=== PATIENT | female | born 1940 | race Caucasian/White ===

== ENCOUNTER 2018-12-05 11:02 | Day surgery (SDC) | payer MEDICARE ==
[2018-12-05] MEDS ORDERED: Midazolam 1 MG/ML 2 ML SDV ONE (11:29)
[2018-12-05] MEDS ORDERED: fentaNYL 100 MCG/2 ML SDV ONE (11:29)
[2018-12-05] MEDS ORDERED: Propofol 200 MG/20 ML SDV ONE (11:29)
[2018-12-05] MEDS: Dextrose 5%-Lactated Ringers 1,000 ML IV SCH (11:49)
[2018-12-05] MEDS: Albuterol/Ipratropium 3.0-0.5 MG/3 ML Neb Soln NEB ONE (11:56)
[2018-12-05 14:02] VITALS: BP 140/74; PULSE 73
--- NOTE | 2018-12-06 15:11 | OR ---
DATE OF PROCEDURE: 12/05/2018 SURGEON: Jose D Marinelli MD PREOPERATIVE DIAGNOSIS: Indications for screening colonoscopy. POSTOPERATIVE DIAGNOSIS: Single small polyp in descending colon. OPERATIVE PROCEDURE: Flexible colonoscopy with polypectomy by snare technique ([id number]). ANESTHESIA: IV sedation. INDICATION FOR PROCEDURE: The patient presents for screening colonoscopy. The plan is to proceed with a colonoscopy with biopsies and/or polypectomy as indicated. Potential risks of the procedure including bleeding and perforation were discussed, and the patient wishes to proceed. DETAILS OF PROCEDURE: The patient was taken to the operating room and placed in a left lateral decubitus position. IV sedation was administered, after which the initial digital rectal exam was performed, which was unremarkable. The colonoscope was then passed to the level of the rectum with retroflexion revealing uncomplicated hemorrhoidal columns. The scope was eventually passed to the level of the cecum. The prep was good with only a small amount of liquid stool present. There was no diverticula or areas of colitis identified. The patient did have 1 single small polyp measuring around 2 to 3 mm. This was encircled with the snare and excised. It did come through the scope in a piecemeal manner with multiple small fragments being sent for histology. The polyp was located 40 cm from the dentate line, i.e. would be in the area of the ascending colon. Good hemostasis was noted at the polypectomy site, and the remainder of the exam was then completed and found to be otherwise unremarkable. The patient was taken to the recovery room in satisfactory condition. At 77, if the patient is in otherwise good health, one should consider repeating the colonoscopy in 2 to 3 years to be sure there is not any local recurrence at the polypectomy site. Jose D Marinelli MD /[id number]
== END 2018-12-05 14:05 | disposition home or self-care (01) ==
LOC: JP.SDS 11:02
PROVIDERS: ATTEND Surgery
DX: Z12.11 Encounter for screening for malignant neoplasm of colon (principal); D12.4 Benign neoplasm of descending colon; I12.9 Hypertensive chronic kidney disease with stage 1 through stage 4 chronic kidney disease, or unspecified chronic kidney disease; E11.22 Type 2 diabetes mellitus with diabetic chronic kidney disease; N18.3 Chronic kidney disease, stage 3 (moderate); Z87.891 Personal history of nicotine dependence
CPT/HCPCS: 45385; 88305; 94640; J2250; J2704; J3010; J7042; J7620-GY

== ENCOUNTER 2024-01-10 07:41 | Inpatient (IN) | payer MEDICARE ==
[2024-01-10] MEDS: Acetaminophen 325 MG Tab PO ONE (08:25)
[2024-01-10] MEDS: Bacitracin Oint 1 GM U/D Packet TOP ONE (12:28)
[2024-01-10] MEDS ORDERED: Polyethylene Glycol 3350 Powder 17 GM Packet PO PRN (14:54)
[2024-01-10] MEDS ORDERED: Ondansetron 4 MG/2 ML SDV IV PRN (14:54)
[2024-01-10] MEDS ORDERED: HYDROCHLOROTHIAZIDE PO SCH (14:54)
[2024-01-10] MEDS ORDERED: Albuterol/Ipratropium 3.0-0.5 MG/3 ML Neb Soln NEB PRN (14:54)
[2024-01-10] MEDS ORDERED: Albuterol 6.7 GM Inhaler INH PRN (14:54)
[2024-01-10] MEDS ORDERED: ENALAPRIL PO SCH (14:54)
[2024-01-10] MEDS ORDERED: [UNRECOGNIZED DRUG - OTHER] PO SCH (14:54)
[2024-01-10] MEDS ORDERED: Sodium Chloride 0.9% 10 ML Syringe FLUSH PRN (14:54)
[2024-01-10 15:12] LABS: HEMATOCRIT 35.8 % (34.3-46.0); HEMOGLOBIN 12.1 g/dL (11.2-15.5); MEAN CORPUSCULAR HEMOGLOBIN 32.4 pg (31.6-35.5); MEAN CORPUSCULAR HGB CONC 33.8 g/dL (31.6-35.5); RED BLOOD CELL COUNT 3.73 M/uL (3.77-5.24); WHITE BLOOD CELL COUNT,WBC 7.4 K/uL (3.2-11.0)
[2024-01-10 15:32] LABS: CALCIUM 9.9 mg/dL (8.5-10.1); EST CRCL DRUG DOSING (CG) 44.51 mL/min; MAGNESIUM 1.2 mg/dL (1.8-2.4); POTASSIUM,K 4.2 mmol/L (3.6-5.2)
[2024-01-10 15:35] LABS: ANION GAP 13.2 mmol/L (5.0-14.0)
[2024-01-10] MEDS: Magnesium Sulfate/Water Premix 2 GM in Premix Bag 1 BAG IV SCH (16:13)
[2024-01-10] MEDS: Enoxaparin 40 MG/0.4 ML Syringe SUBCUT SCH (16:13)
[2024-01-10] MEDS: Enalapril 5 MG Tab PO SCH ×2 (16:13→18:04)
[2024-01-10] MEDS: metFORMIN 500 MG Tab PO SCH (17:01)
[2024-01-10] MEDS ORDERED: Glucose Gel 15 GM in 37.5 GM Tube PO PRN (17:45)
[2024-01-10] MEDS ORDERED: 50% Dextrose in Water 50 ML Syringe IV PRN (17:45)
[2024-01-10] MEDS: Metoprolol Tartrate 25 MG Tab PO SCH (18:18)
[2024-01-10] MEDS: Acetaminophen 325 MG Tab PO PRN (19:40)
[2024-01-10] MEDS: atorvaSTATin 10 MG Tab PO SCH (19:49)
[2024-01-10] MEDS: Magnesium Oxide 400 MG Tab PO SCH (19:49)
[2024-01-10] MEDS: PIOGLITAZONE 45 MG PO SCH (20:08)
[2024-01-10] MEDS: Insulin Lispro 100 Unit/ML 3 ML KwikPen SUBCUT SCH (21:01)
[2024-01-10] MEDS: Acetaminophen/HYDROcodone 325-5 MG Tab PO PRN (23:02)
[2024-01-11 06:09] LABS: CALCIUM 8.9 mg/dL (8.5-10.1); EST CRCL DRUG DOSING (CG) 44.51 mL/min; MAGNESIUM 1.8 mg/dL (1.8-2.4); POTASSIUM,K 4.4 mmol/L (3.6-5.2)
[2024-01-11 06:11] LABS: ANION GAP 11.4 mmol/L (5.0-14.0)
[2024-01-11] MEDS ORDERED: Metoprolol Tartrate 25 MG Tab PO SCH (09:00)
[2024-01-11] MEDS ORDERED: Metoprolol Succinate 25 MG Tab.ER PO SCH (09:00)
[2024-01-11] MEDS: Aspirin 81 MG Tab.EC PO SCH (09:14)
[2024-01-11] MEDS: FLU (Fluad Triv) TS24-25 (65UP)/MF59C/PF 45 MCG/0.5 ML Syringe IM ONE (21:32)
[2024-01-12] MEDS: Docusate Sodium 100 MG Cap PO PRN (12:15)
[2024-01-13 11:27] VITALS: BP 158/49; PULSE 73
== END 2024-01-13 12:00 | DRG 563 ==
LOC: JP.ED 07:41 → JP.2SS 12:52 → JP.MS 01-11 10:09
PROVIDERS: ADMIT Hospitalist; ATTEND Hospitalist
DX: S62.645A Nondisplaced fracture of proximal phalanx of left ring finger, initial encounter for closed fracture (principal); S52.592A Other fractures of lower end of left radius, initial encounter for closed fracture; S82.001A Unspecified fracture of right patella, initial encounter for closed fracture; S82.101A Unspecified fracture of upper end of right tibia, initial encounter for closed fracture; I10 Essential (primary) hypertension; E78.00 Pure hypercholesterolemia, unspecified; S92.212A Displaced fracture of cuboid bone of left foot, initial encounter for closed fracture; E11.9 Type 2 diabetes mellitus without complications; N18.31 Chronic kidney disease, stage 3a; E11.22 Type 2 diabetes mellitus with diabetic chronic kidney disease; Z79.4 Long term (current) use of insulin; Z88.5 Allergy status to narcotic agent; H91.90 Unspecified hearing loss, unspecified ear; H54.7 Unspecified visual loss; M19.90 Unspecified osteoarthritis, unspecified site; K21.9 Gastro-esophageal reflux disease without esophagitis; E83.42 Hypomagnesemia; I12.9 Hypertensive chronic kidney disease with stage 1 through stage 4 chronic kidney disease, or unspecified chronic kidney disease; W19.XXXA Unspecified fall, initial encounter; Z88.8 Allergy status to other drugs, medicaments and biological substances; Z79.899 Other long term (current) drug therapy; Z79.82 Long term (current) use of aspirin; Z79.51 Long term (current) use of inhaled steroids; Z79.84 Long term (current) use of oral hypoglycemic drugs; Z98.49 Cataract extraction status, unspecified eye; Z90.89 Acquired absence of other organs; Z86.0100 Personal history of colon polyps, unspecified; Z98.890 Other specified postprocedural states; Z90.710 Acquired absence of both cervix and uterus; Z90.49 Acquired absence of other specified parts of digestive tract; Z87.891 Personal history of nicotine dependence; Z85.528 Personal history of other malignant neoplasm of kidney
CPT/HCPCS: 36415; 73070-26-LT; 73070-LT; 73110-26-LT; 73110-LT; 73140-26-F4; 73140-F4; 73560-26-RT; 73560-RT; 73590-26-LT; 73590-LT; 73610-26-LT; 73610-LT; 73700-26-LT; 73700-26-RT; 73700-LT; 73700-RT; 76377; 80048; 82947; 83735; 85027; 90653; 97110-GO; 97110-GP; 97162-GP; 97165-GO; 97530-GO; 99222; 99232; 99238; 99284; 99285; A9270-GY; G0008; J1650; J1815; J3475

== ENCOUNTER 2024-03-26 14:21 | Inpatient (IN) | payer MEDICARE ==
[2024-03-26 15:49] LABS: BASOPHILS ABSOLUTE AUTO 0.03 K/uL (0.00-0.10); BASOPHILS PERCENT AUTO 0.3 % (0.1-1.3); EOSINOPHILS ABSOLUTE AUTO 0.15 K/uL (0.00-0.40); EOSINOPHILS PERCENT AUTO 1.7 % (0.0-5.4); HEMATOCRIT 35.1 % (34.3-46.0); IMMATURE GRAN ABSOLUTE AUTO 0.23 K/uL (0.00-0.23); IMMATURE GRAN PERCENT AUTO 2.6 % (0.0-0.7); LYMPHOCYTES ABSOLUTE AUTO 1.24 K/uL (0.8-3.3); LYMPHOCYTES PERCENT AUTO 13.9 % (11.4-47.7); MEAN CORPUSCULAR HEMOGLOBIN 31.8 pg (31.6-35.5); MEAN CORPUSCULAR HGB CONC 34.2 g/dL (31.6-35.5); MEAN CORPUSCULAR VOLUME 93.1 fL (81.4-99.0); MONOCYTES ABSOLUTE AUTO 0.85 K/uL (0.20-0.90); MONOCYTES PERCENT AUTO 9.5 % (3.3-12.6); NEUTROPHILS ABSOLUTE AUTO 6.41 K/uL (1.0-7.6); PLATELET COUNT,PLT 331 K/uL (130-375); RED BLOOD CELL COUNT 3.77 M/uL (3.77-5.24); WHITE BLOOD CELL COUNT,WBC 8.9 K/uL (3.2-11.0)
[2024-03-26 16:09] LABS: A/G RATIO 0.7 (1.2-2.2); ALANINE AMINOTRANSFERASE,ALT 25 U/L (12-78); ALBUMIN 2.9 g/dL (3.4-5.0); ALKALINE PHOSPHATASE 80 U/L (46-116); ANION GAP 12.1 mmol/L (5.0-14.0); ASPARTATE AMNIOTRANSFERASE,AST 23 U/L (15-37); BILIRUBIN TOTAL 0.7 mg/dL (0.2-1.0); BLOOD UREA NITROGEN,BUN 16 mg/dL (7-18); CALCIUM 9.1 mg/dL (8.5-10.1); CARBON DIOXIDE,CO2 28 mmol/L (21-32); CHLORIDE,CL 99 mmol/L (100-108); EST CRCL DRUG DOSING (CG) 43.71 mL/min; ESTIMATED GFR 57 mL/min (>60); GLUCOSE RANDOM 217 mg/dL (74-106); POTASSIUM,K 3.1 mmol/L (3.6-5.2); PROTEIN TOTAL,TP 7.3 g/dL (6.4-8.2); SODIUM,NA 136 mmol/L (140-148)
[2024-03-26] MEDS: Iopamidol 612 MG/ML 100 ML Bottle IV SCH (16:25)
[2024-03-26] MEDS: Sodium Chloride 0.9% 80 ML IV SCH (16:25)
[2024-03-26] MEDS: Ondansetron 4 MG/2 ML SDV IVPUSH ONE (16:34)
[2024-03-26] MEDS: Sodium Chloride 0.9% 1,000 ML IV SCH ×2 (16:35→20:14)
[2024-03-26] MEDS: Acetaminophen 325 MG Tab PO ONE (16:37)
[2024-03-26] MEDS: Benzocaine/Cetylpyridinium/Menthol Lozenge MUCMEM PRN (18:19)
[2024-03-26] MEDS: Lidocaine 4% Top Soln 50 ML Bottle MUCMEM ONE (18:42)
[2024-03-26] MEDS ORDERED: Melatonin 3 MG Tab PO PRN (22:26)
[2024-03-26] MEDS ORDERED: Naloxone 0.4 MG/ML SDV IVPUSH PRN (22:26)
[2024-03-26] MEDS: LORazepam 2 MG/ML SDV IVPUSH PRN (23:06)
[2024-03-26] MEDS: Potassium Chloride 10 MEQ in Premix Bag 1 BAG IV SCH (23:09)
[2024-03-26] MEDS: Magnesium Sulf/Wat 2 GM/50 mL 2 GM in Premix Bag 1 BAG IV SCH (23:18)
[2024-03-27 06:03] LABS: HEMOGLOBIN 10.7 g/dL (11.2-15.5); MEAN CORPUSCULAR HEMOGLOBIN 31.6 pg (31.6-35.5); MEAN CORPUSCULAR HGB CONC 33.4 g/dL (31.6-35.5); MEAN CORPUSCULAR VOLUME 94.4 fL (81.4-99.0); RED BLOOD CELL COUNT 3.39 M/uL (3.77-5.24); WHITE BLOOD CELL COUNT,WBC 7.9 K/uL (3.2-11.0)
[2024-03-27 06:24] LABS: CALCIUM 8.2 mg/dL (8.5-10.1); CREATININE 0.8 mg/dL (0.6-1.0); EST CRCL DRUG DOSING (CG) 54.63 mL/min; POTASSIUM,K 3.2 mmol/L (3.6-5.2)
[2024-03-27 06:26] LABS: ANION GAP 13.2 mmol/L (5.0-14.0)
[2024-03-27] MEDS: Sodium Chloride 0.9% 1,000 ML IV SCH (07:53)
[2024-03-27] MEDS: Potassium Chloride 10 MEQ in Premix Bag 1 BAG IV SCH (08:35)
[2024-03-27] MEDS: Insulin Lispro 100 Unit/ML 3 ML KwikPen SUBCUT SCH (11:32)
[2024-03-27] MEDS: D5 1/2 NS w/ 20 mEq/L KCl 1,000 ML IV SCH (16:18)
[2024-03-27] MEDS: Metoprolol Tartrate 25 MG Tab PO SCH (20:31)
[2024-03-27] MEDS: hydrALAZINE 20 MG/ML SDV IVPUSH PRN (20:43)
[2024-03-28 06:23] LABS: CALCIUM 8.3 mg/dL (8.5-10.1); CREATININE 0.8 mg/dL (0.6-1.0); EST CRCL DRUG DOSING (CG) 54.63 mL/min; POTASSIUM,K 3.3 mmol/L (3.6-5.2)
[2024-03-28 06:24] LABS: ANION GAP 13.3 mmol/L (5.0-14.0)
[2024-03-28] MEDS: HYDROmorphone 0.5 MG/0.5 ML Syringe IVPUSH PRN (08:04)
[2024-03-28] MEDS: Ondansetron 4 MG Tab.DIS PO PRN (08:04)
[2024-03-28] MEDS: Potassium Chloride 10 MEQ in Premix Bag 1 BAG IV SCH (09:11)
[2024-03-28] MEDS: Bisacodyl 10 MG Supp RECTAL ONE (10:23)
[2024-03-28] MEDS: Magnesium Hydroxide 400 MG/5 ML Susp 30 ML Cup NGTUBE ONE (12:03)
[2024-03-29] MEDS: Ondansetron 4 MG/2 ML SDV IV PRN (02:22)
[2024-03-29 05:58] LABS: HEMATOCRIT 33.2 % (34.3-46.0); HEMOGLOBIN 11.1 g/dL (11.2-15.5); MEAN CORPUSCULAR HGB CONC 33.4 g/dL (31.6-35.5); MEAN CORPUSCULAR VOLUME 95.7 fL (81.4-99.0); RED BLOOD CELL COUNT 3.47 M/uL (3.77-5.24); WHITE BLOOD CELL COUNT,WBC 10.7 K/uL (3.2-11.0)
[2024-03-29 06:12] LABS: CALCIUM 8.6 mg/dL (8.5-10.1); CREATININE 0.8 mg/dL (0.6-1.0); EST CRCL DRUG DOSING (CG) 54.63 mL/min; POTASSIUM,K 3.5 mmol/L (3.6-5.2)
[2024-03-29 06:15] LABS: ANION GAP 14.5 mmol/L (5.0-14.0)
[2024-03-29] MEDS: Potassium Chloride 10 MEQ in Premix Bag 1 BAG IV SCH (08:52)
[2024-03-29] MEDS: Bisacodyl 10 MG Supp RECTAL ONE (09:43)
[2024-03-29] MEDS: Magnesium Hydroxide 400 MG/5 ML Susp 30 ML Cup NGTUBE ONE (10:54)
[2024-03-29] MEDS: Magnesium Hydroxide 400 MG/5 ML Susp 30 ML Cup PO ONE (17:57)
[2024-03-30 06:25] LABS: CALCIUM 8.6 mg/dL (8.5-10.1); CREATININE 0.8 mg/dL (0.6-1.0); EST CRCL DRUG DOSING (CG) 54.63 mL/min; POTASSIUM,K 3.8 mmol/L (3.6-5.2)
[2024-03-30 06:28] LABS: ANION GAP 10.8 mmol/L (5.0-14.0)
[2024-03-30 08:50] LABS: APPEARANCE,URINE SLIGHTLY CLOUDY (CLEAR); BILIRUBIN,URINE SMALL (NEGATIVE); GLUCOSE,URINE 250 mg/dL (NEGATIVE); KETONES,URINE 40 mg/dL (NEGATIVE); LEUKOCYTE ESTERASE,URINE TRACE (NEGATIVE); NITRITE,URINE NEGATIVE (NEGATIVE); OCCULT BLOOD,URINE MODERATE (NEGATIVE); PROTEIN,URINE 100 mg/dL (NEGATIVE)
[2024-03-30 09:02] LABS: AMORPHOUS SEDIMENT,URINE FEW; BACTERIA,URINE FEW; COLOR,URINE OTHER (YELLOW); EPITHELIAL CELLS,URINE FEW; MUCUS,URINE MODERATE; RBC,URINE 20-30 (0-5)
[2024-03-30] MEDS: Iopamidol 612 MG/ML 100 ML Bottle IV PRN (10:56)
[2024-03-30] MEDS: Sodium Chloride 0.9% 10 ML Syringe FLUSH ONE (10:56)
[2024-03-30] MEDS: Sodium Chloride 0.9% 80 ML IV SCH (10:56)
[2024-03-30] MEDS: Acetaminophen 325 MG Tab PO PRN (14:11)
[2024-03-30] MEDS: Enalapril 5 MG Tab PO SCH (14:35)
[2024-03-30] MEDS: Diatrizoate Meglumine/Diatrizoate Sodium 37% 120 ML Bottle NGTUBE SCH (14:36)
[2024-03-31 05:54] LABS: HEMATOCRIT 33.3 % (34.3-46.0); MEAN CORPUSCULAR HEMOGLOBIN 31.8 pg (31.6-35.5); MEAN CORPUSCULAR VOLUME 96.2 fL (81.4-99.0); RED BLOOD CELL COUNT 3.46 M/uL (3.77-5.24); WHITE BLOOD CELL COUNT,WBC 8.1 K/uL (3.2-11.0)
[2024-03-31 06:11] LABS: CALCIUM 8.7 mg/dL (8.5-10.1); CREATININE 0.8 mg/dL (0.6-1.0); EST CRCL DRUG DOSING (CG) 54.63 mL/min; MAGNESIUM 1.7 mg/dL (1.8-2.4); POTASSIUM,K 3.4 mmol/L (3.6-5.2)
[2024-03-31 06:15] LABS: ANION GAP 11.4 mmol/L (5.0-14.0)
[2024-03-31] MEDS: Magnesium Sulf/Wat 2 GM/50 mL 2 GM in Premix Bag 1 BAG IV ONE (15:35)
[2024-03-31] MEDS: Dextrose 5%-Lactated Ringers 1,000 ML IV SCH (21:09)
[2024-04-01 05:55] LABS: ANION GAP 10.2 mmol/L (5.0-14.0); CALCIUM 8.2 mg/dL (8.5-10.1); CREATININE 0.7 mg/dL (0.6-1.0); EST CRCL DRUG DOSING (CG) 62.44 mL/min; POTASSIUM,K 3.2 mmol/L (3.6-5.2)
[2024-04-01] MEDS: Potassium Chloride 10 MEQ in Premix Bag 1 BAG IV SCH (09:14)
[2024-04-02 06:18] LABS: CALCIUM 8.6 mg/dL (8.5-10.1); CREATININE 0.8 mg/dL (0.6-1.0); EST CRCL DRUG DOSING (CG) 54.63 mL/min; POTASSIUM,K 3.3 mmol/L (3.6-5.2)
[2024-04-02 06:25] LABS: ANION GAP 12.3 mmol/L (5.0-14.0)
[2024-04-02] MEDS: Potassium Chloride 10 MEQ in Premix Bag 1 BAG IV SCH (09:52)
[2024-04-02] MEDS ORDERED: Sodium Phosphate,Monobasic/Sodium Phosphate,Dibasic Enema 133 ML Bottle RECTAL PRN (13:21)
[2024-04-02] MEDS: Metoclopramide 10 MG/2 ML SDV IVPUSH SCH (15:16)
[2024-04-02] MEDS: Bisacodyl 10 MG Supp RECTAL ONE ×2 (17:00→17:01)
[2024-04-03 06:22] LABS: CALCIUM 8.3 mg/dL (8.5-10.1); CREATININE 0.7 mg/dL (0.6-1.0); EST CRCL DRUG DOSING (CG) 62.44 mL/min
[2024-04-03 06:24] LABS: ANION GAP 13.9 mmol/L (5.0-14.0); POTASSIUM,K 2.9 mmol/L (3.6-5.2)
[2024-04-03] MEDS: Potassium Chloride 10 MEQ in Premix Bag 1 BAG IV SCH (08:09)
[2024-04-03] MEDS: Bisacodyl 10 MG Supp RECTAL PRN (15:00)
[2024-04-03] MEDS: Potassium Chloride 20 MEQ Tab.ER PO ONE ×2 (17:39→22:03)
[2024-04-04] MEDS: Lactated Ringers 1,000 ML IV SCH (04:09)
[2024-04-04 06:14] LABS: CALCIUM 8.1 mg/dL (8.5-10.1); CREATININE 0.7 mg/dL (0.6-1.0); EST CRCL DRUG DOSING (CG) 62.44 mL/min; POTASSIUM,K 3.2 mmol/L (3.6-5.2)
[2024-04-04 06:16] LABS: ANION GAP 13.2 mmol/L (5.0-14.0)
[2024-04-04] MEDS: Potassium Chloride 20 MEQ Tab.ER PO ONE ×2 (08:27→16:47)
[2024-04-04] MEDS ORDERED: Bisacodyl 10 MG Supp RECTAL PRN (12:43)
[2024-04-05 06:04] LABS: CALCIUM 7.9 mg/dL (8.5-10.1); CREATININE 0.8 mg/dL (0.6-1.0); EST CRCL DRUG DOSING (CG) 54.63 mL/min; POTASSIUM,K 3.2 mmol/L (3.6-5.2)
[2024-04-05 06:11] LABS: ANION GAP 13.2 mmol/L (5.0-14.0)
[2024-04-05] MEDS: Potassium Chloride 20 MEQ Tab.ER PO ONE ×3 (09:17→16:54)
[2024-04-05] MEDS: Furosemide 20 MG/2 ML VIAL IVPUSH ONE (12:35)
[2024-04-05] MEDS: Dimethicone 20%/Zinc Oxide 25% 56 GM Spray Bottle TOP PRN (15:22)
[2024-04-05] MEDS: LORazepam 0.5 MG Tab PO PRN (21:30)
[2024-04-06] MEDS: Potassium Chloride 20 MEQ Tab.ER PO SCH (08:18)
[2024-04-06] MEDS: Potassium Chloride 20 MEQ Tab.ER PO ONE (14:40)
[2024-04-06] MEDS: Furosemide 40 MG/4 ML VIAL IVPUSH ONE (14:40)
[2024-04-06] MEDS: Sennosides/Docusate Sodium 50-8.6 MG Tab PO SCH (14:40)
[2024-04-06] MEDS ORDERED: Potassium Chloride 20 MEQ Tab.ER PO ONE (17:00)
[2024-04-06] MEDS: metFORMIN 500 MG Tab PO SCH (17:34)
[2024-04-06] MEDS ORDERED: PIOGLITAZONE HCL 45 MG PO SCH (21:00)
[2024-04-06] MEDS: atorvaSTATin 10 MG Tab PO SCH (21:03)
[2024-04-07 06:12] LABS: CALCIUM 8.5 mg/dL (8.5-10.1); CREATININE 0.9 mg/dL (0.6-1.0); EST CRCL DRUG DOSING (CG) 48.56 mL/min; POTASSIUM,K 3.8 mmol/L (3.6-5.2)
[2024-04-07 06:28] LABS: ANION GAP 14.8 mmol/L (5.0-14.0)
[2024-04-07] MEDS: Aspirin 81 MG Tab.EC PO SCH (08:00)
[2024-04-07 10:58] VITALS: BP 150/64; PULSE 81
== END 2024-04-07 11:06 | disposition home health service (06) | DRG 394 ==
LOC: JP.ED 14:21 → JP.MS 19:51
PROVIDERS: ADMIT Registered Nurse; ATTEND Hospitalist
PROC: 0D9670Z Drainage of Stomach with Drainage Device, Via Natural or Artificial Opening (ICD-10-PCS; principal; 2024-03-26)
DX: K91.89 Other postprocedural complications and disorders of digestive system (principal); K56.7 Ileus, unspecified; E87.6 Hypokalemia; N18.9 Chronic kidney disease, unspecified; E83.42 Hypomagnesemia; Z66 Do not resuscitate; E11.21 Type 2 diabetes mellitus with diabetic nephropathy; N18.31 Chronic kidney disease, stage 3a; I12.9 Hypertensive chronic kidney disease with stage 1 through stage 4 chronic kidney disease, or unspecified chronic kidney disease; Z88.5 Allergy status to narcotic agent; E11.22 Type 2 diabetes mellitus with diabetic chronic kidney disease; Z98.890 Other specified postprocedural states; Z79.82 Long term (current) use of aspirin; H91.90 Unspecified hearing loss, unspecified ear; H54.7 Unspecified visual loss; E78.00 Pure hypercholesterolemia, unspecified; K21.9 Gastro-esophageal reflux disease without esophagitis; M19.90 Unspecified osteoarthritis, unspecified site; Z96.649 Presence of unspecified artificial hip joint; R60.0 Localized edema; Z88.8 Allergy status to other drugs, medicaments and biological substances; Z79.84 Long term (current) use of oral hypoglycemic drugs; Z79.899 Other long term (current) drug therapy; Z79.51 Long term (current) use of inhaled steroids; Z86.0100 Personal history of colon polyps, unspecified; Z98.49 Cataract extraction status, unspecified eye; Z90.89 Acquired absence of other organs; Z90.49 Acquired absence of other specified parts of digestive tract; Z90.710 Acquired absence of both cervix and uterus; Z85.528 Personal history of other malignant neoplasm of kidney; Z90.5 Acquired absence of kidney
CPT/HCPCS: 36415; 74018; 74018-26; 74019; 74019-26; 74177; 74177-26; 80048; 80053; 81001; 82947; 83605; 83735; 84145; 85025; 85027; 87086; 99223; 99231; 99232; 99238; 99284; 99285; A9270-GY; J0360; J1815; J1940; J2060; J2405; J2765; J3475; J3480; J7120; J7121; Q0162; Q9963; Q9967

== ENCOUNTER 2024-07-14 09:02 | Emergency (ER) | payer MEDICARE ==
[2024-07-14] MEDS: HYDROmorphone 1 MG/ML Syringe IVPUSH ONE ×2 (09:15→12:35)
[2024-07-14] MEDS: Ondansetron 4 MG/2 ML SDV IVPUSH ONE (09:48)
[2024-07-14] MEDS: droPERidol 5 MG/2 ML SDV IVPUSH ONE (10:10)
[2024-07-14] MEDS: Sodium Chloride 0.9% 80 ML IV ONE (10:33)
[2024-07-14] MEDS: Iopamidol 612 MG/ML 100 ML Bottle IV PRN (10:33)
[2024-07-14] MEDS: Sodium Chloride 0.9% 10 ML Syringe FLUSH PRN (10:33)
[2024-07-14 14:40] VITALS: BP 160/67; PULSE 97
== END 2024-07-14 14:45 ==
LOC: JP.ED 09:02
DX: S72.002A Fracture of unspecified part of neck of left femur, initial encounter for closed fracture (principal); I10 Essential (primary) hypertension; E11.9 Type 2 diabetes mellitus without complications; E78.00 Pure hypercholesterolemia, unspecified; Z88.8 Allergy status to other drugs, medicaments and biological substances; Z79.899 Other long term (current) drug therapy; Z79.84 Long term (current) use of oral hypoglycemic drugs; Z90.49 Acquired absence of other specified parts of digestive tract; Z90.710 Acquired absence of both cervix and uterus; W01.0XXA Fall on same level from slipping, tripping and stumbling without subsequent striking against object, initial encounter
CPT/HCPCS: 73030; 73502; 74177; 96374; 96375; 96376; 99284; 99285; J1171; J1790; J2405; Q9967